=== PATIENT | male | born 1945 | race Caucasian/White ===

== ENCOUNTER → 2018-02-26 16:29 | Emergency (ER) | payer MEDICARE | END | disposition left against medical advice (07) | LOC: BURERS 16:29 | DX: Z53.21 Procedure and treatment not carried out due to patient leaving prior to being seen by health care provider (principal) ==

== ENCOUNTER 2019-01-25 19:32 | Emergency (ER) | payer MEDICARE ==
[~2019-01-25 19:32] MED LIST: Iopamidol 370 76% 100 ML VIAL ONE
[2019-01-25 20:07] LABS: #Basophils 0.1 thou/uL (0.0-0.2); #Eosinphils 0.1 thou/uL (0.0-0.7); #Lymphocytes 1.5 thou/uL (1.20-3.40); #Monocytes 0.4 thou/uL (0.11-0.59); #Neutrophils 3.8 thou/uL (1.40-6.50); %Basophils 1.2 % (0.0-1.0); %Lymphocytes 26.4 % (21.0-51.0); %Monocytes 6.3 % (0.0-10.0); %Neutrophils 65.1 % (42.0-75.0); Hemoglobin 12.5 g/dL (14.0-18.0); Mean Corpuscular HGB CONC 31.5 g/dL (32.0-36.0); Mean Corpuscular Hemoglobin 30.5 pg (27.0-31.0); Mean Corpuscular Volume 96.7 fL (78.0-98.0); Mean Platelet Volume 9.4 fL (7.4-10.4); Platelet Count 158 thou/uL (130-400); RBC Distribution Width 13.4 % (11.5-14.5); Red Blood Cell (RBC) Count 4.12 mill/uL (4.70-6.10); White Blood Cell (WBC) Count 5.8 thou/uL (4.8-10.8)
[2019-01-25 20:31] LABS: ALT (SGPT) 17 U/L (8-55); AST (SGOT) 18 U/L (5-34); Albumin 3.5 g/dL (3.4-4.8); Alkaline Phosphatase 61 U/L (40-150); Anion Gap 12 mmol/L (10-20); BUN (Urea Nitrogen) 20 mg/dL (8.4-25.7); Bilirubin, Total 0.4 mg/dL (0.2-1.2); Calc. Creatinine Clearance 0 mL/min (70-130); Calcium 8.4 mg/dL (7.8-10.44); Carbon Dioxide 26 mmol/L (23-31); Chloride 108 mmol/L (98-107); Estimated GFR-MDRD 55; Globulin 2.4 g/dL (2.4-3.5); Glucose 102 mg/dL (83-110); Potassium 4.1 mmol/L (3.5-5.1); Protein, Total 5.9 g/dL (5.8-8.1); Sodium 142 mmol/L (136-145)
[2019-01-25] MEDS ORDERED: Enoxaparin Sodium 100 MG/ML SYRINGE ONE (22:13)
--- NOTE | 2019-01-25 22:36 | RAD ---
PORTABLE CHEST: 01/25/19 Comparison is made with the 10/15/17 study. Some volume loss on the left is noted. The heart size is normal. No lobar infiltrate or effusion wa s seen. No mediastinal mass was appreciated. IMPRESSION: No acute finding. POS: HOME
--- NOTE | 2019-01-25 22:50 | CT ---
CT ANGIO OF THE CHEST 01/25/[address] of the chest was performed after an injection of IV contrast. Comparison is made with the p rior exam of 08/01/15. Unfortunately, the IV extravasated while the injection was proceeding. As the result, a markedly sub optimal amount of IV contrast was injected. This yielded a study that is indeterminate for pulmonary embolism as the opacification is not enough to draw many conclusions from. I would note, however, markus t the branch of the left pulmonary artery leading to the left lower lobe does not seem at all promine nt where it was a healthy size on the 2015 scan. This would make me wonder if there might be clot in it, but the finding is truly indeterminate. Coronary artery calcifications are present in both the right and left circulations. No pericardial ef fusion was seen. No pleural effusions were present. The lungs are currently clear. I do not see pulm onary nodules as were present in 2015. Scans into the upper abdomen showed no gross masses in the liver. The spleen and pancreas were unrem arkable. The adrenal glands were normal in size. There is a 3.2 cm cyst in the right kidney. There a re other low density areas in each kidney (though the kidneys were not seen completely) that are more likely cysts but ultrasound would be needed for confirmation. IMPRESSION: 1. Indeterminate exam for pulmonary embolism due to injection issues. 2. The left lower lobe pulmonary artery seems much smaller and less obvious than it was on the p rior study. Even though not opacified, it does raise a question in my mind about its patency. 3. Coronary arteriosclerosis. Findings discussed with Dr. Gardiner at [id number] on 01/25/19. POS: HOME
== END 2019-01-25 22:45 | disposition short-term general hospital (02) ==
LOC: BURERS 19:32
DX: R06.02 Shortness of breath (principal); R79.1 Abnormal coagulation profile; I25.10 Atherosclerotic heart disease of native coronary artery without angina pectoris; Z79.899 Other long term (current) drug therapy; Z79.82 Long term (current) use of aspirin
CPT/HCPCS: 71045; 71275; 80053; 83880; 84484; 85025; 85379; 93005; 96372; J1650; Q9967

== ENCOUNTER 2021-05-06 10:04 | Emergency (ER) | payer MEDICARE ==
[2021-05-06 22:28] LABS: SARS-CoV-2 PCR by NAA DETECTED (NotDetected)
== END 2021-05-06 11:32 | disposition home or self-care (01) ==
LOC: BURERS 10:04
DX: U07.1 COVID-19 (principal); J20.8 Acute bronchitis due to other specified organisms; I10 Essential (primary) hypertension
CPT/HCPCS: 71045; 99283; U0003; U0005

== ENCOUNTER 2021-06-17 10:19 | Emergency (ER) | payer MEDICARE | END 2021-06-17 11:23 | disposition home or self-care (01) | LOC: BURERS 10:19 | DX: S61.012A Laceration without foreign body of left thumb without damage to nail, initial encounter (principal); S61.213A Laceration without foreign body of left middle finger without damage to nail, initial encounter; I10 Essential (primary) hypertension; W26.0XXA Contact with knife, initial encounter | CPT/HCPCS: 12002 ==

== ENCOUNTER 2024-02-18 09:56 | Emergency (ER) | payer MEDICARE ==
[2024-02-18] MEDS ORDERED: Ipratropium/Albuterol 3 ML NEB ONE (10:27)
[2024-02-18 11:16] LABS: #Eosinphils 0.1 thou/uL (0.0-0.7); #Lymphocytes 1.8 thou/uL (1.20-3.40); #Monocytes 0.5 thou/uL (0.11-0.59); #Neutrophils 4.4 thou/uL (1.40-6.50); %Basophils 0.5 % (0.0-1.0); %Eosinophils 1.2 % (0.0-10.0); %Lymphocytes 26.2 % (21.0-51.0); %Monocytes 6.9 % (0.0-10.0); %Neutrophils 65.3 % (42.0-75.0); Hematocrit 42.9 % (42.0-52.0); Mean Corpuscular HGB CONC 30.3 g/dL (32.0-36.0); Mean Corpuscular Hemoglobin 26.8 pg (27.0-31.0); Mean Corpuscular Volume 88.5 fl (78.0-98.0); Mean Platelet Volume 8.6 fL (7.4-10.4); Platelet Count 173 10x3/uL (130-400); Red Blood Cell (RBC) Count 4.84 mill/uL (4.70-6.10); White Blood Cell (WBC) Count 6.7 10x3/uL (4.8-10.8)
[2024-02-18 11:20] LABS: ALT (SGPT) 15 U/L (8-55); AST (SGOT) 18 U/L (5-34); Albumin 3.5 g/dL (3.4-4.8); Alkaline Phosphatase 67 U/L (40-110); Anion Gap 15 mmol/L (10-20); BUN (Urea Nitrogen) 26 mg/dL (8.4-25.7); Bilirubin, Total 0.5 mg/dL (0.2-1.2); Calc. Creatinine Clearance 0 mL/min (70-130); Calcium 9.2 mg/dL (7.8-10.44); Carbon Dioxide 24 mmol/L (23-31); Chloride 107 mmol/L (98-107); Estimated GFR 60; Globulin 3.7 g/dL (2.4-3.5); Glucose 86 mg/dL (83-110); Potassium 4.3 mmol/L (3.5-5.1); Protein, Total 7.2 g/dL (5.8-8.1); Sodium 142 mmol/L (136-145)
[2024-02-18 11:21] LABS: Troponin I 0.028 ng/mL (< 0.028)
[2024-02-18] MEDS ORDERED: predniSONE 20 MG TAB ONE (11:57)
[2024-02-18] MEDS ORDERED: Doxycycline 100 MG CAP ONE (11:57)
== END 2024-02-18 12:07 | disposition home or self-care (01) ==
LOC: BURERS 09:56
DX: J22 Unspecified acute lower respiratory infection (principal); I10 Essential (primary) hypertension
CPT/HCPCS: 36415; 71045; 80053; 83605; 83880; 84484; 85025; 93005; J7512; J7620